=== PATIENT | male | born 1995 | race Two or more races ===

== ENCOUNTER 2025-04-09 14:18 | Outpatient (CLI) | payer OTHER, SELFPAY ==
--- NOTE | 2025-04-09 14:27 | XR_ITS ---
FINAL REPORT CLINICAL HISTORY: left hand pain COMPARISON: None FINDINGS: AP, oblique, and lateral views of the left hand were obtained. There is no prior exam for comparison. There is no acute fracture of the left hand. The joint spaces are preserved. The soft tissues are normal. IMPRESSION: No acute osseous abnormality of the left hand. Reviewed, Interpreted and Dictated by Gilda Prescott MD Transcribed by Rocio Beckham Authenticated and [facility]
== END 2025-04-09 23:59 | disposition home or self-care (01) ==
LOC: RAD 14:20
PROVIDERS: PCP Family Medicine; Visit Provider Physician Assistant
DX: M79.642 Pain in left hand (principal)
CPT/HCPCS: 73130